=== PATIENT | male | born 1990 | race Two or more races ===

== ENCOUNTER 2020-07-13 08:57 | Outpatient (CLI) | payer OTHER ==
--- NOTE | 2020-07-13 10:59 | XRAY Report ---
PROCEDURE: Shoulder 3 View BILAT INDICATIONS: BILATERAL SHOULDER PAIN TECHNIQUE: 3 views of each shoulder were acquired. COMPARISON: None. FINDINGS: Bones: No fractures or dislocations. No suspicious bony lesions. Visualized ribs appear intact. A cromioclavicular and coracoclavicular intervals are maintained. Soft tissues: No suspicious soft tissue calcifications. IMPRESSION: Bilateral shoulder without acute radiographic abnormalities. No significant degenerative changes visualized. Reviewed by: Jhonny Abdul MD on 07/13/2020 9:57 AM [facility] Approved by: Jhonny Abdul MD on 07/13/2020 9:57 AM [facility] Station ID: [id number]
== END 2020-07-13 08:58 | disposition home or self-care (01) ==
LOC: DI 08:57
PROVIDERS: ATTEND Physician Assistant Medical
DX: M25.511 Pain in right shoulder (principal); M25.512 Pain in left shoulder